=== PATIENT | male | born 1935 | race Caucasian/White ===

== ENCOUNTER → 2018-04-09 | Outpatient (CLI) | payer MEDICARE ==
--- NOTE | 2018-04-09 16:02 | MR ---
EXAMINATION TYPE: MR cervical spine wo/w con DATE OF EXAM: 04/09/2018 COMPARISON: CT cervical spine 11/01/2014 HISTORY: Radiculopathy, cervical region TECHNIQUE: Multiplanar, multisequence images of the cervical spine were acquired utilizing 9.5 mL intravenous Ga davist gadolinium contrast. There is an anterior cervical fusion C6-7. There is loss of disc height C 3-4. Retrolisthesis of C3 on C4 is likely present. C2-C3: No evidence for degenerative disc disease. No disc bulge/herniation or protrusion. No Canal stenosis. Foramina are patent bilaterally. C3-C4: Endplate uncovering is present. This has moderate anterior thecal sac compression. No cord con tact is evident. Severe bilateral foraminal stenosis present. C4-C5: Disc bulge has some central minimal protrusion. No cord contact is evident. No spinal canal st enosis present. Severe bilateral foraminal narrowing due to uncovertebral joint hypertrophy is prese nt. C5-C6: Mild disc bulge has anterior thecal sac flattening. No AP spinal canal stenosis present. Moder ate bilateral foraminal narrowing is present. C6-C7: Degenerative disc changes are within the cervical disc spaces. No spinal canal stenosis or yoselin ral foraminal stenosis present. No significant disc bulge is evident C7-T1: No spinal canal stenosis or neural foraminal stenosis present. There is some degenerative rogers ge within the cervical disc spaces. Spinal cord maintains normal signal through its visualized course. No suspicious enhancement is evide nt. There is patchy signal change within the cervical vertebral bodies. IMPRESSION: Mild disc bulging from degenerative disc changes discussed above. 2. Grade 1 retrolisthesis of C3 on C4. 3. Patchy marrow signal changes within the cervical spine.
== END | disposition home or self-care (01) ==
LOC: RADMRIMAIN 11:26
PROVIDERS: ATTEND Internal Medicine Rheumatology
DX: M50.122 Cervical disc disorder at C5-C6 level with radiculopathy (principal); M47.22 Other spondylosis with radiculopathy, cervical region; M43.12 Spondylolisthesis, cervical region
CPT/HCPCS: 82565; 72156; 36415; A9581